=== PATIENT | female | born 1960 | race Caucasian/White ===

== ENCOUNTER 2019-03-12 07:59 | Day surgery (SDC) | payer OTHER ==
[~2019-03-12 07:59] MED LIST: CEFAZOLIN 2 GM/50 ML (PMX) 50 ML IVPB
[2019-03-12] MEDS ORDERED: CEFAZOLIN 1 GM INJ (10:11)
[2019-03-12] MEDS ORDERED: LIDOCAINE 100 MG SYRINGE (10:11)
[2019-03-12] MEDS ORDERED: FENTAnyl 50 MCG/ML VIAL (10:11)
[2019-03-12] MEDS ORDERED: MIDAZOLAM 1 MG/ML 2 ML INJ (10:11)
[2019-03-12] MEDS ORDERED: PROPOFOL 20 ML (10:11)
[2019-03-12] MEDS: POLYMYXIN/BACITRACIN 1L IRRIG (10:34)
[2019-03-12] MEDS: BUPIVACAINE 0.25% (MPF) 30 ML INJ (10:34)
[2019-03-12] MEDS: LIDOCAINE 2% (MDV) 20 ML INJ (10:34)
[2019-03-12] MEDS ORDERED: ALBUTEROL 0.083% (NEB) 2.5 MG/3 ML AMP HHN (11:00)
[2019-03-12] MEDS ORDERED: LABETALOL HCL 20MG INJ IV (11:00)
[2019-03-12] MEDS ORDERED: METOCLOPRAMIDE 10 MG INJ IV (11:00)
[2019-03-12] MEDS ORDERED: OXYCODONE/ACETAMINOPHEN (5/325) TAB PO (11:00)
[2019-03-12] MEDS ORDERED: FENTAnyl 50 MCG/ML VIAL IV (11:00)
[2019-03-12] MEDS ORDERED: HYDROmorphONE 1 MG/5 ML IV SYRINGE IV (11:00)
[2019-03-12] MEDS ORDERED: DIPHENHYDRAMINE 50 MG INJ IV (11:00)
[2019-03-12] MEDS ORDERED: MEPERIDINE 25 MG INJ IV (11:00)
[2019-03-12] MEDS ORDERED: IPRATROPIUM (NEB) 0.5 MG/2.5 ML AMP HHN (11:00)
[2019-03-12] MEDS ORDERED: KETOROLAC 15 MG INJ IV (11:00)
[2019-03-12] MEDS ORDERED: ALBUMIN HUMAN 5% 250 ML IV (11:00)
[2019-03-12] MEDS ORDERED: ATROPINE 1 MG/10 ML SYRINGE IV (11:00)
[2019-03-12] MEDS ORDERED: MIDAZOLAM 1 MG/ML 2 ML INJ IV (11:00)
[2019-03-12] MEDS ORDERED: ONDANSETRON 4 MG INJ IV (11:00)
[2019-03-12] MEDS ORDERED: EPHEDrine 25 MG/5 ML SYG IV (11:00)
[2019-03-12] MEDS ORDERED: hydrALAzine 20 MG INJ IV (11:00)
[2019-03-12] MEDS ORDERED: ONDANSETRON 4 MG INJ (11:29)
[2019-03-12] MEDS ORDERED: DEXAMETHASONE 4 MG/ML 5 ML INJ (11:29)
[2019-03-12] MEDS: HYDROmorphONE 1 MG/5 ML IV SYRINGE IV (11:56)
== END 2019-03-12 13:43 | disposition home or self-care (01) ==
LOC: SDS 07:59
DX: M21.611 Bunion of right foot (principal); M20.41 Other hammer toe(s) (acquired), right foot; J44.9 Chronic obstructive pulmonary disease, unspecified
CPT/HCPCS: 28285; 73630; 88304; 88311

== ENCOUNTER 2019-03-14 13:54 | Emergency (ER) | payer OTHER ==
[2019-03-14] MEDS: HYDROCODONE/APAP (10/325) TAB PO (14:52)
== END 2019-03-14 16:04 | disposition home or self-care (01) ==
LOC: E/R 13:54
DX: G89.18 Other acute postprocedural pain (principal)
CPT/HCPCS: 99283; Z7502